=== PATIENT | female | born 1990 | race African-American/Black ===

== ENCOUNTER 2018-01-23 12:50 | Emergency (ER) | payer SELFPAY | END 2018-01-23 14:14 | disposition home or self-care (01) | LOC: ER 14:14 | DX: S30.860A Insect bite (nonvenomous) of lower back and pelvis, initial encounter (principal); L08.9 Local infection of the skin and subcutaneous tissue, unspecified; L60.0 Ingrowing nail; L03.032 Cellulitis of left toe; Z88.3 Allergy status to other anti-infective agents; W57.XXXA Bitten or stung by nonvenomous insect and other nonvenomous arthropods, initial encounter; Y93.89 Activity, other specified; Y92.89 Other specified places as the place of occurrence of the external cause; Y99.8 Other external cause status | CPT/HCPCS: 99283 ==

== ENCOUNTER 2018-10-16 02:05 | Emergency (ER) | payer SELFPAY ==
[~2018-10-16] VITALS: Ht 157.5 cm; Wt 72.6 kg
[~2018-10-16 02:05] MED LIST: CEPH-264 PO; DOXY100C2 PO; HYDR15CR20 TP; MUPI22OI2 TP; PRED-220 PO
[2018-10-16] MEDS ORDERED: IV NORMAL SALINE 1000ML BAG 1,000 ML IV SCH (03:00)
[2018-10-16] MEDS ORDERED: ACETAMINOPHEN 500 MG TABLET PO ONE (03:00)
[2018-10-16] MEDS ORDERED: IBUPROFEN 400 MG TABLET. PO ONE (03:00)
[2018-10-16 03:25] LABS: BASO % 0 % (0-3); EOS % 0 % (0-3); HEMATOCRIT 27.3 % (36.0-47.0); HEMOGLOBIN 8.7 g/dL (12.0-15.5); LYMPH # 1.5 x10^3/uL (1.0-4.8); LYMPH % 46 % (24-48); MEAN CORPUSCULAR HEMOGLOBIN 24 pg (25-35); MEAN CORPUSCULAR HGB CONC 32 g/dL (31-37); MEAN CORPUSCULAR VOLUME 74 fL (79-100); MONO # 0.2 x10^3/uL (0.0-1.1); MONO % 5 % (0-9); NEUT # 1.6 x10^3uL (1.8-7.7); NEUT % 49 % (31-73); PLATELET COUNT 35 x10^3/uL (140-400); RED BLOOD COUNT 3.67 x10^6/uL (3.50-5.40); RED CELL DISTRIBUTION WIDTH 14.9 % (11.5-14.5); WHITE BLOOD COUNT 3.3 x10^3/uL (4.0-11.0)
[2018-10-16 03:30] LABS: CALCIUM 8.4 mg/dL (8.5-10.1); CREATININE 1.8 mg/dL (0.6-1.0); GFR 41.2; POTASSIUM 4.9 mmol/L (3.5-5.1)
[2018-10-16 03:35] LABS: ALBUMIN 2.8 g/dL (3.4-5.0); ALBUMIN/GLOBULIN RATIO 0.5 (1.0-1.7); TOTAL BILIRUBIN 0.4 mg/dL (0.2-1.0); TOTAL PROTEIN 7.9 g/dL (6.4-8.2)
--- NOTE | 2018-10-16 03:44 | PHYS DOC ---
Past Medical History Past Medical History: Anemia, Other Additional Past Medical Histor: LUPUS, psvt Past Surgical History: Other Additional Past Surgical Histo: BONE MARROW AND KIDNEY BIOPSY Alcohol Use: None Drug Use: None Adult General Chief Complaint Chief Complaint: FEVER HPI HPI Patient is a 27-year-old female who presents with complaint of fever, body aches and chills that started about a week ago. She rates the body aches being mild. She denies any urinary discomfort states that she has had no cough. She denies any vomiting or diarrhea. She also denies any neck pain or headache. She denies sore throat. Patient states that there are no alleviating or aggravating factors. Review of Systems Review of Systems Constitutional: Complains of fever and chills [] HENT: Denies nasal congestion or sore throat [] Respiratory: Denies cough or shortness of breath [] Cardiovascular: No additional information not addressed in HPI [] GI: Denies abdominal pain, nausea, vomiting or diarrhea [] : Denies dysuria or hematuria [] Musculoskeletal: Complains of body aches and back pain [] Integument: Denies rash or skin lesions [] Neurologic: Denies headache, focal weakness or sensory changes [] All other systems were reviewed and found to be within normal limits, except as documented in this note. Current Medications Current Medications Current Medications Medications (Trade) Dose Ordered Sig/Shamir Start Time Stop Time Status Last Admin Dose Admin Acetaminophen (Tylenol) 1,000 mg 1X ONCE 10/16/18 03:00 10/16/18 03:01 DC 10/16/18 03:39 1,000 MG Ceftriaxone Sodium (Rocephin) 1 gm 1X ONCE 10/16/18 06:00 10/16/18 06:01 Ibuprofen (Motrin) 600 mg 1X ONCE 10/16/18 03:00 10/16/18 03:01 DC 10/16/18 03:39 600 MG Sodium Chloride 1,000 ml @ 1,000 mls/hr Q1H 10/16/18 03:00 10/16/18 03:59 DC 10/16/18 03:38 1,000 MLS/HR Allergies Allergies Allergies Coded Allergies Type Severity Reaction Last Updated Verified hydroxychloroquine Allergy Intermediate "crazy dreams" stomach pain, dizziness 10/16/18 Yes Physical Exam Physical Exam Constitutional: Well developed, well nourished, no acute distress, non-toxic appearance. [] HENT: Normocephalic, atraumatic, bilateral external ears normal, oropharynx moist, no oral exudates, nose normal. [] Eyes: PERRLA, EOMI, conjunctiva normal, no discharge. [] Neck: Normal range of motion, no tenderness, supple. [] Cardiovascular: Tachycardic rate with regular rhythm[] Lungs & Thorax: Bilateral breath sounds clear to auscultation [] Abdomen: Bowel sounds normal, soft, no tenderness. [] Skin: Warm, dry, no erythema, no rash. [] Extremities: No tenderness, no cyanosis, no clubbing, ROM intact, no edema. [] Neurologic: Alert and oriented X 3, no focal deficits noted. [] Current Patient Data Vital Signs Vital Signs Date Time Temp Pulse Resp B/P (MAP) Pulse Ox O2 Delivery O2 Flow Rate FiO2 10/16/18 02:10 99.7 134 22 122/72 (89) 98 Room Air 99.7 Lab Values Laboratory Tests Test 10/16/18 02:44 10/16/18 03:00 10/16/18 04:30 Urine Collection Type Unknown Urine Color Yellow Urine Clarity Clear Urine pH 7.5 Urine Specific [place] <=1.005 Urine Protein 100 mg/dL (NEG-TRACE) Urine Glucose (UA) Negative mg/dL (NEG) Urine Ketones (Stick) Negative mg/dL (NEG) Urine Blood Large (NEG) Urine Nitrite Negative (NEG) Urine Bilirubin Negative (NEG) Urine Urobilinogen Dipstick 0.2 mg/dL (0.2 mg/dL) Urine Leukocyte Esterase Moderate (NEG) Urine RBC 11-20 /HPF (0-2) Urine WBC Tntc /HPF (0-4) Urine Squamous Epithelial Cells Many /LPF Urine Bacteria Moderate /HPF (0-FEW) White Blood Count 3.3 x10^3/uL (4.0-11.0) L Red Blood Count 3.67 x10^6/uL (3.50-5.40) Hemoglobin 8.7 g/dL (12.0-15.5) L Hematocrit 27.3 % (36.0-47.0) L Mean Corpuscular Volume 74 fL (79-100) L Mean Corpuscular Hemoglobin 24 pg (25-35) L Mean Corpuscular Hemoglobin Concent 32 g/dL (31-37) Red Cell Distribution Width 14.9 % (11.5-14.5) H Platelet Count 35 x10^3/uL (140-400) L Neutrophils (%) (Auto) 49 % (31-73) Lymphocytes (%) (Auto) 46 % (24-48) Monocytes (%) (Auto) 5 % (0-9) Eosinophils (%) (Auto) 0 % (0-3) Basophils (%) (Auto) 0 % (0-3) Neutrophils # (Auto) 1.6 x10^3uL (1.8-7.7) L Lymphocytes # (Auto) 1.5 x10^3/uL (1.0-4.8) Monocytes # (Auto) 0.2 x10^3/uL (0.0-1.1) Eosinophils # (Auto) 0.0 x10^3/uL (0.0-0.7) Basophils # (Auto) 0.0 x10^3/uL (0.0-0.2) Platelet Estimate Pending Sodium Level 132 mmol/L (136-145) L Potassium Level 4.9 mmol/L (3.5-5.1) Chloride Level 96 mmol/L (98-107) L Carbon Dioxide Level 24 mmol/L (21-32) Anion Gap 12 (6-14) Blood Urea Nitrogen 14 mg/dL (7-20) Creatinine 1.8 mg/dL (0.6-1.0) H Estimated GFR (Cockcroft-Gault) 41.2 BUN/Creatinine Ratio 8 (6-20) Glucose Level 93 mg/dL (70-99) Lactic Acid Level 0.8 mmol/L (0.4-2.0) Calcium Level 8.4 mg/dL (8.5-10.1) L Total Bilirubin 0.4 mg/dL (0.2-1.0) Aspartate Amino Transferase (AST) 69 U/L (15-37) H Alanine Aminotransferase (ALT) 22 U/L (14-59) Alkaline Phosphatase 75 U/L (46-116) Total Protein 7.9 g/dL (6.4-8.2) Albumin 2.8 g/dL (3.4-5.0) L Albumin/Globulin Ratio 0.5 (1.0-1.7) L Influenza Type A Antigen Negative (NEGATIVE) Influenza Type B Antigen Negative (NEGATIVE) Laboratory Tests 10/16/18 03:00 Laboratory Tests 10/16/18 03:00 EKG EKG [] Interpretation Time: EKG demonstrates sinus tachycardia with rate of 114. Radiology/Procedures Radiology/Procedures [] Impressions: Chest x-ray demonstrates no acute process. Course & Med Decision Making Course & Med Decision Making Pertinent Labs and Imaging studies reviewed. (See chart for details) Patient moved to room upon arrival was evaluated by your medical staff after which an IV was established and blood work drawn. Chest x-ray was obtained as well. Patient's workup is returned with findings of pancytopenia and upon review no significant change is noted. Patient's chest x-ray was unremarkable. Renal function demonstrates elevated creatinine. UA seems consistent with UTI. Patient had been given ibuprofen and Tylenol for fever. Patient was reevaluated at 5:40 AM and does report to improvement in symptoms. I did discuss recommendation for admission to this facility for IV antibiotics and further evaluation and treatment. Patient is refusing admission at this time and is requesting discharge home with oral antibiotics. I did attempt to encourage patient to be admitted to this facility; however, patient is refusing admission at this time. She states that she lives very close to the emergency room and can return if symptoms worsen. Katherine Disclaimer Katherine Disclaimer This electronic medical record was generated, in whole or in part, using a voice recognition dictation system. Departure Departure Impression: Primary Impression: Pancytopenia Additional Impressions: [id number] kidney injury Fever Urinary tract infection Disposition: 01 HOME, SELF-CARE Condition: IMPROVED Referrals: NON,STAFF (PCP) Patient Instructions: Anemia, Nonspecific-Brief, Fever, Kidney Failure, Thrombocytopenia, Urinary Tract Infection Scripts Levofloxacin (LEVAQUIN) 500 Mg Tablet 1 TAB PO DAILY, #10 TAB Prov: LONG MCADAMS Jr. DO 10/16/18 Problem Qualifiers Additional Impressions: [id number] kidney injury Acute renal failure type: unspecified Chronic kidney disease stage: unspecified stage Qualified Codes: N17.9 - Acute kidney failure, unspecified; N18.9 - Chronic kidney disease, unspecified Fever Fever type: unspecified Qualified Codes: R50.9 - Fever, unspecified Urinary tract infection Urinary tract infection type: site unspecified Hematuria presence: with hematuria Qualified Codes: N39.0 - Urinary tract infection, site not specified ; R31.9 - Hematuria, unspecified LONG MCADAMS Jr. DO Oct 16, 2018 03:44
[2018-10-16 04:03] LABS: BILIRUBIN,URINE NEGATIVE (NEG); CLARITY,URINE CLEAR; COLOR,URINE YELLOW; NITRITE,URINE NEGATIVE (NEG); PH,URINE 7.5; PROTEIN,URINE 100 mg/dL (NEG-TRACE); UROBILINOGEN,URINE 0.2 mg/dL (0.2 mg/dL)
--- NOTE | 2018-10-16 04:08 | RAD ---
PROCEDURE: PORTABLE CHEST 1V CLINICAL INDICATION: Fever. pt has piercing over sternum that can't be removed manually COMPARISON: 04/18/2016 FINDINGS: No pneumothorax identified. Cardiac and mediastinal contours unremarkable. No pulmonary consolidation or acute airspace disease. No acute osseous abnormalities identified. IMPRESSION: No pulmonary consolidation or acute airspace disease. Electronically signed by: Tam Alvares DO (10/16/2018 4:05 AM) [facility]
[2018-10-16 04:33] LABS: BACTERIA,URINE MODERATE /HPF (0-FEW); SQUAMOUS EPITHELIAL CELL,UR MANY /LPF; WBC,URINE TNTC /HPF (0-4)
[2018-10-16 05:08] LABS: INFLUENZA A PATIENT NEGATIVE (NEGATIVE); INFLUENZA B PATIENT NEGATIVE (NEGATIVE)
[2018-10-16] MEDS ORDERED: LEVO500T59 PO (05:57)
[2018-10-16] MEDS ORDERED: cefTRIAXone IV Push 1 GM VIAL. IVP ONE (06:00)
--- NOTE | 2018-10-16 06:46 | EKG ---
[facility] [address] [place] [address] Test Date: 2018-10-16 Test Time: 03:32:22 Pat Name: PATRICIA WISEMAN Department: Room: Gender: F Litigation Counsel: : 1990 Requested By: LONG MCADAMS Order Number: [id number] Reading MD: Raul Sheets MD Measurements Intervals [place] Rate: 114 P: 0 TN: 106 QRS: 26 QRSD: 66 T: 31 QT: 290 QTc: 402 Interpretive Statements SINUS TACHYCARDIA NON-SPECIFIC ST/T CHANGES Electronically Signed On 10-22-2018 13:54:05 CDT by Raul Sheets MD
[2018-10-16 06:55] VITALS: BP 85/56
[2018-10-16 08:12] LABS: PLT ESTIMATE DECREASED (ADEQUATE)
== END 2018-10-16 06:58 | disposition home or self-care (01) ==
LOC: ER 02:05
DX: N18.9 Chronic kidney disease, unspecified (principal); N17.9 Acute kidney failure, unspecified; N39.0 Urinary tract infection, site not specified; D61.818 Other pancytopenia; R50.9 Fever, unspecified; R00.0 Tachycardia, unspecified; Z88.3 Allergy status to other anti-infective agents
CPT/HCPCS: 36415; 71045; 80053; 81001; 83605; 85025; 87040; 87070; 87086; 87804; 87880; 93005; 96374; 99284; J0696; J7030; 87186

== ENCOUNTER 2018-10-17 04:31 | Inpatient (IN) | payer SELFPAY ==
[~2018-10-17] VITALS: Ht 158.8 cm; Wt 66.7 kg
[~2018-10-17 04:31] MED LIST changes: +LEVO500T59 PO
[2018-10-17 05:00] LABS: BASO % 0 % (0-3); EOS % 0 % (0-3); HEMATOCRIT 26.7 % (36.0-47.0); HEMOGLOBIN 8.4 g/dL (12.0-15.5); LYMPH # 1.6 x10^3/uL (1.0-4.8); LYMPH % 48 % (24-48); MEAN CORPUSCULAR HEMOGLOBIN 24 pg (25-35); MEAN CORPUSCULAR HGB CONC 31 g/dL (31-37); MEAN CORPUSCULAR VOLUME 75 fL (79-100); MONO # 0.1 x10^3/uL (0.0-1.1); MONO % 3 % (0-9); NEUT # 1.6 x10^3uL (1.8-7.7); NEUT % 49 % (31-73); PLATELET COUNT 27 x10^3/uL (140-400); RED BLOOD COUNT 3.56 x10^6/uL (3.50-5.40); RED CELL DISTRIBUTION WIDTH 15.4 % (11.5-14.5); WHITE BLOOD COUNT 3.3 x10^3/uL (4.0-11.0)
--- NOTE | 2018-10-17 05:07 | PHYS DOC ---
Past Medical History Past Medical History: Anemia, Other Additional Past Medical Histor: LUPUS, psvt Past Surgical History: Other Additional Past Surgical Histo: BONE MARROW AND KIDNEY BIOPSY Alcohol Use: None Drug Use: None Adult General Chief Complaint Chief Complaint: BLOODY STOOL HPI HPI Patient is a 27 year old female who presents with rectal bleeding that started several hours ago. Patient had been drinking beat juice and initially attributed the right red blood from her rectum to the beach use however it has continued for 4 bowel movements. Patient also notes that she developed a fever of 104 yesterday. She was seen in the emergency department yesterday and ultimately diagnosed with a urinary tract infection and started on IV antibiotics. She has lupus as well as a known pancytopenia. She has taken no pain nor antipyretic medicines. She denies taking any medicines.[] Review of Systems Review of Systems Constitutional: Denies chills, see history of present illness [] Eyes: Denies change in visual acuity, redness, or eye pain [] HENT: Denies nasal congestion or sore throat [] Respiratory: Denies cough or shortness of breath [] Cardiovascular: No chest pain or palpitations[] GI: See history of present illness[] : Denies dysuria or hematuria [] Musculoskeletal: Denies back pain or joint pain [] Integument: Denies rash or skin lesions [] Neurologic: Denies headache, focal weakness or sensory changes [] Endocrine: Denies polyuria or polydipsia [] All other systems were reviewed and found to be within normal limits, except as documented in this note. Current Medications Current Medications Current Medications Medications (Trade) Dose Ordered Sig/Shamir Start Time Stop Time Status Last Admin Dose Admin Ceftriaxone Sodium (Rocephin) 1 gm 1X ONCE 10/17/18 05:30 10/17/18 05:31 DC Pantoprazole Sodium (PROTONIX VIAL for IV PUSH) 40 mg 1X ONCE 10/17/18 05:30 10/17/18 05:31 DC Sodium Chloride 500 ml @ 500 mls/hr 1X ONCE 10/17/18 05:30 10/17/18 06:29 Allergies Allergies Allergies Coded Allergies Type Severity Reaction Last Updated Verified hydroxychloroquine Allergy Intermediate "crazy dreams" stomach pain, dizziness 10/16/18 Yes Physical Exam Physical Exam Constitutional: Well developed, well nourished, ill appearing. [] HENT: Normocephalic, atraumatic, bilateral external ears normal, oropharynx moist, no oral exudates, nose normal. [] Eyes: PERRLA, EOMI, conjunctiva normal, no discharge. [] Neck: Normal range of motion, no tenderness, supple, no stridor. [] Cardiovascular:Heart rate is tachycardic with a regular rhythm, no murmur [] Lungs & Thorax: Bilateral breath sounds clear to auscultation [] Abdomen: Bowel sounds normal, soft, no tenderness, no masses, no pulsatile masses. Rectal exam performed with tread booker: No external hemorrhoids, no bleeding noted externally. Stool was red in color, no internal masses palpated[] Skin: Warm, dry, no erythema, no rash. [] Back: No tenderness, no CVA tenderness. [] Extremities: No tenderness, no cyanosis, no clubbing, ROM intact, no edema. [] Neurologic: Alert and oriented X 3, normal motor function, normal sensory function, no focal deficits noted. [] Psychologic: Affect normal, judgement normal, mood normal. [] Current Patient Data Vital Signs Vital Signs Date Time Temp Pulse Resp B/P (MAP) Pulse Ox O2 Delivery O2 Flow Rate FiO2 10/17/18 04:40 99.6 118 16 114/66 (82) 100 Room Air 99.6 Lab Values Laboratory Tests Test 10/17/18 04:45 10/17/18 04:50 10/17/18 05:23 10/17/18 05:25 Lactic Acid Level 0.8 mmol/L (0.4-2.0) White Blood Count 3.3 x10^3/uL (4.0-11.0) L Red Blood Count 3.56 x10^6/uL (3.50-5.40) Hemoglobin 8.4 g/dL (12.0-15.5) L Hematocrit 26.7 % (36.0-47.0) L Mean Corpuscular Volume 75 fL (79-100) L Mean Corpuscular Hemoglobin 24 pg (25-35) L Mean Corpuscular Hemoglobin Concent 31 g/dL (31-37) Red Cell Distribution Width 15.4 % (11.5-14.5) H Platelet Count 27 x10^3/uL (140-400) L Neutrophils (%) (Auto) 49 % (31-73) Lymphocytes (%) (Auto) 48 % (24-48) Monocytes (%) (Auto) 3 % (0-9) Eosinophils (%) (Auto) 0 % (0-3) Basophils (%) (Auto) 0 % (0-3) Neutrophils # (Auto) 1.6 x10^3uL (1.8-7.7) L Lymphocytes # (Auto) 1.6 x10^3/uL (1.0-4.8) Monocytes # (Auto) 0.1 x10^3/uL (0.0-1.1) Eosinophils # (Auto) 0.0 x10^3/uL (0.0-0.7) Basophils # (Auto) 0.0 x10^3/uL (0.0-0.2) Segmented Neutrophils % 40 % (35-66) Band Neutrophils % 17 % (0-9) H Lymphocytes % 41 % (24-48) Monocytes % 2 % (0-10) Platelet Estimate Decreased (ADEQUATE) Hypochromasia Slight Anisocytosis Slight Microcytosis Slight Tear Drop Cells Occ Ovalocytes Few Prothrombin Time 14.0 SEC (11.7-14.0) Prothrombin Time INR 1.1 (0.8-1.1) Stool Occult Blood Negative (NEG) Sodium Level 132 mmol/L (136-145) L Potassium Level 4.2 mmol/L (3.5-5.1) Chloride Level 96 mmol/L (98-107) L Carbon Dioxide Level 21 mmol/L (21-32) Anion Gap 15 (6-14) H Blood Urea Nitrogen 12 mg/dL (7-20) Creatinine 1.9 mg/dL (0.6-1.0) H Estimated GFR (Cockcroft-Gault) 38.7 BUN/Creatinine Ratio 6 (6-20) Glucose Level 109 mg/dL (70-99) H Calcium Level 8.3 mg/dL (8.5-10.1) L Total Bilirubin 0.4 mg/dL (0.2-1.0) Aspartate Amino Transferase (AST) 92 U/L (15-37) H Alanine Aminotransferase (ALT) 31 U/L (14-59) Alkaline Phosphatase 77 U/L (46-116) Total Protein 7.9 g/dL (6.4-8.2) Albumin 2.9 g/dL (3.4-5.0) L Albumin/Globulin Ratio 0.6 (1.0-1.7) L Urine Collection Type Unknown Urine Color Yellow Urine Clarity Clear Urine pH 6.0 Urine Specific [place] <=1.005 Urine Protein 100 mg/dL (NEG-TRACE) Urine Glucose (UA) Negative mg/dL (NEG) Urine Ketones (Stick) Trace mg/dL (NEG) Urine Blood Large (NEG) Urine Nitrite Negative (NEG) Urine Bilirubin Negative (NEG) Urine Urobilinogen Dipstick 0.2 mg/dL (0.2 mg/dL) Urine Leukocyte Esterase Small (NEG) Urine RBC 3-5 /HPF (0-2) Urine WBC 11-20 /HPF (0-4) Urine Squamous Epithelial Cells Few /LPF Urine Bacteria 0 /HPF (0-FEW) POC Urine HCG, Qualitative Hcg negative (Negative) Laboratory Tests 10/17/18 04:50 Laboratory Tests 10/17/18 04:50 EKG EKG EKG shows sinus tachycardia at 115 bpm, normal axis, QTC 431 ms, no ST elevation. Interpreted by me at 0 522[] Radiology/Procedures Radiology/Procedures [] Course & Med Decision Making Course & Med Decision Making Pertinent Labs and Imaging studies reviewed. (See chart for details) ED course and medical decision making: Patient arrived, was placed in bed, and tolerated exam well. IV access was established and she was given IV fluids. Review was made of her chart from yesterday, noting that she had a negative chest x-ray and she was given Rocephin IV for a urinary tract infection and started on outpatient levofloxacin. No was made of her anemia as well as tachycardia which appears to be approximately the same today. It is also noted that she has no growth in her culture obtained yesterday. Medical decision making: Patient has pancytopenia along with her lupus. Her stool was Hemoccult negative despite being bright red, this may be from the beets that she had been ingesting. Her urine looks better in that there are fewer white cells than yesterday's urinalysis. However given that she is feeling worse believe that this is a failure of outpatient treatment and so consultation was made with the hospitalist service for admission and further evaluation.[] Dragon Disclaimer Dragon Disclaimer This electronic medical record was generated, in whole or in part, using a voice recognition dictation system. Departure Departure Impression: Primary Impression: Failure of outpatient treatment Additional Impressions: UTI (urinary tract infection) SLE (systemic lupus erythematosus related syndrome) Pancytopenia Weakness Disposition: 09 ADMITTED INPATIENT Admitting Physician: Freeman Mariee Condition: IMPROVED Referrals: NO PCP (PCP) Problem Qualifiers Additional Impressions: UTI (urinary tract infection) Urinary tract infection type: site unspecified Hematuria presence: with hematuria Qualified Codes: N39.0 - Urinary tract infection, site not specified ; R31.9 - Hematuria, unspecified BEENA GONZALEZ DO Oct 17, 2018 05:07
[2018-10-17 05:11] LABS: CALCIUM 8.3 mg/dL (8.5-10.1); CREATININE 1.9 mg/dL (0.6-1.0); GFR 38.7; POTASSIUM 4.2 mmol/L (3.5-5.1)
[2018-10-17 05:15] LABS: FECAL OB PT NEGATIVE (NEG)
[2018-10-17 05:17] LABS: ALBUMIN 2.9 g/dL (3.4-5.0); ALBUMIN/GLOBULIN RATIO 0.6 (1.0-1.7); TOTAL BILIRUBIN 0.4 mg/dL (0.2-1.0); TOTAL PROTEIN 7.9 g/dL (6.4-8.2)
[2018-10-17] MEDS ORDERED: cefTRIAXone IV Push 1 GM VIAL. IVP ONE (05:30)
[2018-10-17] MEDS ORDERED: IV NORMAL SALINE 500ML BAG 500 ML IV ONE (05:30)
[2018-10-17] MEDS ORDERED: PANTOPRAZOLE IV PUSH 40 MG VIAL. IVP ONE (05:30)
[2018-10-17 05:32] LABS: BILIRUBIN,URINE NEGATIVE (NEG); CLARITY,URINE CLEAR; COLOR,URINE YELLOW; NITRITE,URINE NEGATIVE (NEG); PROTEIN,URINE 100 mg/dL (NEG-TRACE); UROBILINOGEN,URINE 0.2 mg/dL (0.2 mg/dL)
[2018-10-17 05:42] LABS: BACTERIA,URINE 0 /HPF (0-FEW); SQUAMOUS EPITHELIAL CELL,UR FEW /LPF
[2018-10-17 05:48] LABS: % BANDS 17 % (0-9); % LYMPHS 41 % (24-48); % MONOS 2 % (0-10); % SEGS 40 % (35-66); ANISOCYTOSIS SLIGHT; HYPOCHROMIA SLIGHT; MICROCYTOSIS SLIGHT; OVALOCYTES FEW; PLT ESTIMATE DECREASED (ADEQUATE); TEAR DROP CELLS OCC
[2018-10-17] MEDS ORDERED: ACETAMINOPHEN 325 MG TABLET. PO PRN (06:15)
[2018-10-17] MEDS ORDERED: ONDANSETRON PF 4 MG/2 ML VIAL. IV PRN ×2 (06:15→09:15)
[2018-10-17] MEDS ORDERED: IV NORMAL SALINE 1000ML BAG 1,000 ML IV SCH (06:30)
[2018-10-17 07:57] VITALS: BP 94/63
[2018-10-17] MEDS ORDERED: HYDROCORTISONE 1% TOPICAL CREAM 30GM TUBE. TP PRN (09:30)
[2018-10-17 11:15] VITALS: BP 101/64
--- NOTE | 2018-10-17 11:28 | PDOC1 ---
History and Physical Date of Admission Date of Admission DATE: 10/17/18 TIME: 11:21 Identification/Chief Complaint Chief Complaint Blood in stool? But could be just beet juice Source Source: Caregiver, Chart review, Patient History of Present Illness History of Present Illness 27 Afro-[place]ian female with SLE follows with [facility], known pancytopenia, comes in because of bloody stools but could've been just be juice she was taking. Hemoccult negative. Hemoglobin 8.4, WBC 3.3, low platelets 27 with no bleeding- she claims she is known pancytopenia. Creatinine 1.9 with a creatinine that she gives me a value 3.0. SLE has affected her kidneys. UTI initially but I don't think this UTI as I have reviewed on UA. Admitted with GI and renal on board No more bloody urine or stools. We are just waiting for GI to see but actually I think she can go home later. I do believe this is all just be juice. Her pancytopenia is chronic stable, her CK D is actually stable and she follows up with [facility] and has an appointment next month We'll do regular diet and possibly home later Flags sepsos, getting IV fluids and antibiotics. I am not convinced it is UTI. Looking at urinalysis there is rbc's many, could be from the low platelets Past Medical History CENTRAL NERVOUS SYSTEM: Seizure Heme/Onc: Anemia NOS Rheumatologic: Other (SLE) Past Surgical History Past Surgical History: No pertinent history Family History Family History: Hypertension Social History Smoke: No ALCOHOL: none Drugs: None Current Problem List Problem List Problems Medical Problems: (1) Pancytopenia Status: Acute Current Medications Current Medications Current Medications Sodium Chloride 500 ml @ 500 mls/hr 1X ONCE IV Last administered on at 06:11; Start 10/17/18 at 05:30; Stop 10/17/18 at 06:29; Status DC Pantoprazole Sodium (PROTONIX VIAL for IV PUSH) 40 mg 1X ONCE IVP Last administered on 10/17/18at 06:11; Start 10/17/18 at 05:30; Stop 10/17/18 at 05:31 ; Status DC Ceftriaxone Sodium (Rocephin) 1 gm 1X ONCE IVP Last administered on 10/17/18at 06:11; Start 10/17/18 at 05:30; Stop 10/17/18 at 05:31; Status DC Ondansetron HCl (Zofran) 4 mg PRN Q8HRS PRN IV NAUSEA/VOMITING 1ST CHOICE; Start 10/17/18 at 06:15; Stop 10/17/18 at 09:01; Status DC Sodium Chloride 1,000 ml @ 150 mls/hr Q6H40M IV Last administered on at 06:30; Start 10/17/18 at 06:30; Stop 10/18/18 at 06:29 Acetaminophen (Tylenol) 650 mg PRN Q4HRS PRN PO FEVER; Start 10/17/18 at 06:15 ; Stop 10/18/18 at 06:14 Ondansetron HCl (Zofran) 4 mg PRN Q6HRS PRN IV NAUSEA/VOMITING 1ST CHOICE; Start 10/17/18 at 09:15 Mupirocin (Bactroban) 1 nano TID TP ; Start 10/17/18 at 14:00 Hydrocortisone (Cortaid) 1 nano PRN BID PRN TP ITCHING; Start 10/17/18 at 09:30 Active Scripts Active Levaquin (Levofloxacin) 500 Mg Tablet 1 Tab PO DAILY Hydrocortisone Valerate 15 Gm Cream..g. 1 Nano TP BID PRN 5 Days Apply thin layer to itchy area twice daily for itching Mupirocin Ointment (Mupirocin) 22 Gm Oint...g. 1 Nano TP TID 7 Days to Left great toe Keflex (Cephalexin) 500 Mg Capsule 1,000 Mg PO BID 10 Days Doxycycline Hyclate 100 Mg Capsule 1 Cap PO BID Prednisone (Prednisone) 10 Mg Tablet 10 Mg PO UD Take 3 tablets by mouth twice a day for 3 days, then take 2 tablets by mouth twice a day for 3 days, then take 1 tablet by mouth twice a day for 3 days, then take 1 tablet by mouth daily x 3 days, then stop. Allergies Allergies: Coded Allergies: hydroxychloroquine (Verified Allergy, Intermediate, "crazy dreams" stomach pain, dizziness, 10/16/18) ROS Review of System Only red stools from beet juice otherwise rest of 14 point systems reviewed negative Physical Exam General: Alert, Oriented X3, Cooperative, No acute distress HEENT: Atraumatic, PERRLA, EOMI Lungs: Clear to auscultation, Normal air movement Heart: S1S2, RRR, no thrills, no rubs, no gallops Cardiovascular: S1, S2 Breasts: Normal, Rt breast nml w/o mass, Lt breast nml w/o mass, Nipples normal Abdomen: Normal bowel sounds, Soft, No tenderness, No hepatosplenomegaly, No masses Rectal Exam: not examined PELVIC: Nml ext genitalia Extremities: No clubbing, No cyanosis, No edema, Normal pulses, No tenderness/ swelling Skin: No rashes, No breakdown, No significant lesion Neuro: Normal gait, Normal speech, Strength at 5/5 X4 ext, Normal tone, Sensation intact, Cranial nerves 3-12 NL, Reflexes 2+ Psych/Mental Status: Mental status NL, Mood NL Vitals Vitals Vital Signs Date Time Temp Pulse Resp B/P (MAP) Pulse Ox O2 Delivery O2 Flow Rate FiO2 10/17/18 07:57 99.0 97 18 94/63 (73) 99 Room Air 99.0 Labs Labs Laboratory Tests Test 10/17/18 04:45 10/17/18 04:50 10/17/18 05:23 10/17/18 05:25 Lactic Acid Level 0.8 mmol/L (0.4-2.0) White Blood Count 3.3 x10^3/uL (4.0-11.0) Red Blood Count 3.56 x10^6/uL (3.50-5.40) Hemoglobin 8.4 g/dL (12.0-15.5) Hematocrit 26.7 % (36.0-47.0) Mean Corpuscular Volume 75 fL (79-100) Mean Corpuscular Hemoglobin 24 pg (25-35) Mean Corpuscular Hemoglobin Concent 31 g/dL (31-37) Red Cell Distribution Width 15.4 % (11.5-14.5) Platelet Count 27 x10^3/uL (140-400) Neutrophils (%) (Auto) 49 % (31-73) Lymphocytes (%) (Auto) 48 % (24-48) Monocytes (%) (Auto) 3 % (0-9) Eosinophils (%) (Auto) 0 % (0-3) Basophils (%) (Auto) 0 % (0-3) Neutrophils # (Auto) 1.6 x10^3uL (1.8-7.7) Lymphocytes # (Auto) 1.6 x10^3/uL (1.0-4.8) Monocytes # (Auto) 0.1 x10^3/uL (0.0-1.1) Eosinophils # (Auto) 0.0 x10^3/uL (0.0-0.7) Basophils # (Auto) 0.0 x10^3/uL (0.0-0.2) Segmented Neutrophils % 40 % (35-66) Band Neutrophils % 17 % (0-9) Lymphocytes % 41 % (24-48) Monocytes % 2 % (0-10) Platelet Estimate Decreased (ADEQUATE) Hypochromasia Slight Anisocytosis Slight Microcytosis Slight Tear Drop Cells Occ Ovalocytes Few Prothrombin Time 14.0 SEC (11.7-14.0) Prothromb Time International Ratio 1.1 (0.8-1.1) Stool Occult Blood Negative (NEG) Sodium Level 132 mmol/L (136-145) Potassium Level 4.2 mmol/L (3.5-5.1) Chloride Level 96 mmol/L (98-107) Carbon Dioxide Level 21 mmol/L (21-32) Anion Gap 15 (6-14) Blood Urea Nitrogen 12 mg/dL (7-20) Creatinine 1.9 mg/dL (0.6-1.0) Estimated GFR (Cockcroft-Gault) 38.7 BUN/Creatinine Ratio 6 (6-20) Glucose Level 109 mg/dL (70-99) Calcium Level 8.3 mg/dL (8.5-10.1) Total Bilirubin 0.4 mg/dL (0.2-1.0) Aspartate Amino Transf (AST/SGOT) 92 U/L (15-37) Alanine Aminotransferase (ALT/SGPT) 31 U/L (14-59) Alkaline Phosphatase 77 U/L (46-116) Total Protein 7.9 g/dL (6.4-8.2) Albumin 2.9 g/dL (3.4-5.0) Albumin/Globulin Ratio 0.6 (1.0-1.7) Urine Collection Type Unknown Urine Color Yellow Urine Clarity Clear Urine pH 6.0 Urine Specific [place] <=1.005 Urine Protein 100 mg/dL (NEG-TRACE) Urine Glucose (UA) Negative mg/dL (NEG) Urine Ketones (Stick) Trace mg/dL (NEG) Urine Blood Large (NEG) Urine Nitrite Negative (NEG) Urine Bilirubin Negative (NEG) Urine Urobilinogen Dipstick 0.2 mg/dL (0.2 mg/dL) Urine Leukocyte Esterase Small (NEG) Urine RBC 3-5 /HPF (0-2) Urine WBC 11-20 /HPF (0-4) Urine Squamous Epithelial Cells Few /LPF Urine Bacteria 0 /HPF (0-FEW) Bedside Urine HCG, Qualitative Hcg negative (Negative) Laboratory Tests Test 10/17/18 04:45 10/17/18 04:50 10/17/18 05:23 10/17/18 05:25 Lactic Acid Level 0.8 mmol/L (0.4-2.0) White Blood Count 3.3 x10^3/uL (4.0-11.0) Red Blood Count 3.56 x10^6/uL (3.50-5.40) Hemoglobin 8.4 g/dL (12.0-15.5) Hematocrit 26.7 % (36.0-47.0) Mean Corpuscular Volume 75 fL (79-100) Mean Corpuscular Hemoglobin 24 pg (25-35) Mean Corpuscular Hemoglobin Concent 31 g/dL (31-37) Red Cell Distribution Width 15.4 % (11.5-14.5) Platelet Count 27 x10^3/uL (140-400) Neutrophils (%) (Auto) 49 % (31-73) Lymphocytes (%) (Auto) 48 % (24-48) Monocytes (%) (Auto) 3 % (0-9) Eosinophils (%) (Auto) 0 % (0-3) Basophils (%) (Auto) 0 % (0-3) Neutrophils # (Auto) 1.6 x10^3uL (1.8-7.7) Lymphocytes # (Auto) 1.6 x10^3/uL (1.0-4.8) Monocytes # (Auto) 0.1 x10^3/uL (0.0-1.1) Eosinophils # (Auto) 0.0 x10^3/uL (0.0-0.7) Basophils # (Auto) 0.0 x10^3/uL (0.0-0.2) Segmented Neutrophils % 40 % (35-66) Band Neutrophils % 17 % (0-9) Lymphocytes % 41 % (24-48) Monocytes % 2 % (0-10) Platelet Estimate Decreased (ADEQUATE) Hypochromasia Slight Anisocytosis Slight Microcytosis Slight Tear Drop Cells Occ Ovalocytes Few Prothrombin Time 14.0 SEC (11.7-14.0) Prothromb Time International Ratio 1.1 (0.8-1.1) Stool Occult Blood Negative (NEG) Sodium Level 132 mmol/L (136-145) Potassium Level 4.2 mmol/L (3.5-5.1) Chloride Level 96 mmol/L (98-107) Carbon Dioxide Level 21 mmol/L (21-32) Anion Gap 15 (6-14) Blood Urea Nitrogen 12 mg/dL (7-20) Creatinine 1.9 mg/dL (0.6-1.0) Estimated GFR (Cockcroft-Gault) 38.7 BUN/Creatinine Ratio 6 (6-20) Glucose Level 109 mg/dL (70-99) Calcium Level 8.3 mg/dL (8.5-10.1) Total Bilirubin 0.4 mg/dL (0.2-1.0) Aspartate Amino Transf (AST/SGOT) 92 U/L (15-37) Alanine Aminotransferase (ALT/SGPT) 31 U/L (14-59) Alkaline Phosphatase 77 U/L (46-116) Total Protein 7.9 g/dL (6.4-8.2) Albumin 2.9 g/dL (3.4-5.0) Albumin/Globulin Ratio 0.6 (1.0-1.7) Urine Collection Type Unknown Urine Color Yellow Urine Clarity Clear Urine pH 6.0 Urine Specific [place] <=1.005 Urine Protein 100 mg/dL (NEG-TRACE) Urine Glucose (UA) Negative mg/dL (NEG) Urine Ketones (Stick) Trace mg/dL (NEG) Urine Blood Large (NEG) Urine Nitrite Negative (NEG) Urine Bilirubin Negative (NEG) Urine Urobilinogen Dipstick 0.2 mg/dL (0.2 mg/dL) Urine Leukocyte Esterase Small (NEG) Urine RBC 3-5 /HPF (0-2) Urine WBC 11-20 /HPF (0-4) Urine Squamous Epithelial Cells Few /LPF Urine Bacteria 0 /HPF (0-FEW) Bedside Urine HCG, Qualitative Hcg negative (Negative) VTE Prophylaxis Ordered VTE Prophylaxis Devices: Contraindicated VTE Pharmacological Prophylaxi: Contraindicated Assessment/Plan Assessment/Plan Bloody appearance of stool sec to beet juice [place] SLE with known pancytopenia - follows with [facility] FLags sepsis BUT THIS IS NOT SEPSIS BUT HE CO MORBIDS FOBT NEG MIcrsocopic hematuria in [place] background of low platelets PLAN: REason for admit is sec to beet juice, All albs are chronic and stable HAs ff up with [facility] next month HOme today MONA ZARAGOZA MD Oct 17, 2018 11:28
--- NOTE | 2018-10-17 11:29 | PDOC3 ---
Discharge Summary Visit Information Date of Admission: Oct 16, 2018 Date of Discharge: Oct 17, 2018 Admitting Diagnosis Comment: Bloody appearance of stool sec to beet juice [place] SLE with known pancytopenia - follows with [facility] FLags sepsis BUT THIS IS NOT SEPSIS BUT HE CO MORBIDS FOBT NEG MIcrsocopic hematuria in [place] background of low platelets PLAN: REason for admit is sec to beet juice, All albs are chronic and stable HAs ff up with [facility] next month HOme today Final Diagnosis Problems Medical Problems: (1) Pancytopenia Status: Acute Brief Hospital Course Allergies Allergies Coded Allergies Type Severity Reaction Last Updated Verified hydroxychloroquine Allergy Intermediate "crazy dreams" stomach pain, dizziness 10/16/18 Yes Vital Signs Vital Signs Date Time Temp Pulse Resp B/P (MAP) Pulse Ox O2 Delivery O2 Flow Rate FiO2 10/17/18 07:57 99.0 97 18 94/63 (73) 99 Room Air 99.0 Lab Results Laboratory Tests Test 10/17/18 04:45 10/17/18 04:50 10/17/18 05:23 10/17/18 05:25 Lactic Acid Level 0.8 mmol/L (0.4-2.0) White Blood Count 3.3 x10^3/uL (4.0-11.0) Red Blood Count 3.56 x10^6/uL (3.50-5.40) Hemoglobin 8.4 g/dL (12.0-15.5) Hematocrit 26.7 % (36.0-47.0) Mean Corpuscular Volume 75 fL (79-100) Mean Corpuscular Hemoglobin 24 pg (25-35) Mean Corpuscular Hemoglobin Concent 31 g/dL (31-37) Red Cell Distribution Width 15.4 % (11.5-14.5) Platelet Count 27 x10^3/uL (140-400) Neutrophils (%) (Auto) 49 % (31-73) Lymphocytes (%) (Auto) 48 % (24-48) Monocytes (%) (Auto) 3 % (0-9) Eosinophils (%) (Auto) 0 % (0-3) Basophils (%) (Auto) 0 % (0-3) Neutrophils # (Auto) 1.6 x10^3uL (1.8-7.7) Lymphocytes # (Auto) 1.6 x10^3/uL (1.0-4.8) Monocytes # (Auto) 0.1 x10^3/uL (0.0-1.1) Eosinophils # (Auto) 0.0 x10^3/uL (0.0-0.7) Basophils # (Auto) 0.0 x10^3/uL (0.0-0.2) Segmented Neutrophils % 40 % (35-66) Band Neutrophils % 17 % (0-9) Lymphocytes % 41 % (24-48) Monocytes % 2 % (0-10) Platelet Estimate Decreased (ADEQUATE) Hypochromasia Slight Anisocytosis Slight Microcytosis Slight Tear Drop Cells Occ Ovalocytes Few Prothrombin Time 14.0 SEC (11.7-14.0) Prothromb Time International Ratio 1.1 (0.8-1.1) Stool Occult Blood Negative (NEG) Sodium Level 132 mmol/L (136-145) Potassium Level 4.2 mmol/L (3.5-5.1) Chloride Level 96 mmol/L (98-107) Carbon Dioxide Level 21 mmol/L (21-32) Anion Gap 15 (6-14) Blood Urea Nitrogen 12 mg/dL (7-20) Creatinine 1.9 mg/dL (0.6-1.0) Estimated GFR (Cockcroft-Gault) 38.7 BUN/Creatinine Ratio 6 (6-20) Glucose Level 109 mg/dL (70-99) Calcium Level 8.3 mg/dL (8.5-10.1) Total Bilirubin 0.4 mg/dL (0.2-1.0) Aspartate Amino Transf (AST/SGOT) 92 U/L (15-37) Alanine Aminotransferase (ALT/SGPT) 31 U/L (14-59) Alkaline Phosphatase 77 U/L (46-116) Total Protein 7.9 g/dL (6.4-8.2) Albumin 2.9 g/dL (3.4-5.0) Albumin/Globulin Ratio 0.6 (1.0-1.7) Urine Collection Type Unknown Urine Color Yellow Urine Clarity Clear Urine pH 6.0 Urine Specific [place] <=1.005 Urine Protein 100 mg/dL (NEG-TRACE) Urine Glucose (UA) Negative mg/dL (NEG) Urine Ketones (Stick) Trace mg/dL (NEG) Urine Blood Large (NEG) Urine Nitrite Negative (NEG) Urine Bilirubin Negative (NEG) Urine Urobilinogen Dipstick 0.2 mg/dL (0.2 mg/dL) Urine Leukocyte Esterase Small (NEG) Urine RBC 3-5 /HPF (0-2) Urine WBC 11-20 /HPF (0-4) Urine Squamous Epithelial Cells Few /LPF Urine Bacteria 0 /HPF (0-FEW) Bedside Urine HCG, Qualitative Hcg negative (Negative) Laboratory Tests Test 10/17/18 04:45 10/17/18 04:50 10/17/18 05:23 10/17/18 05:25 Lactic Acid Level 0.8 mmol/L (0.4-2.0) White Blood Count 3.3 x10^3/uL (4.0-11.0) Red Blood Count 3.56 x10^6/uL (3.50-5.40) Hemoglobin 8.4 g/dL (12.0-15.5) Hematocrit 26.7 % (36.0-47.0) Mean Corpuscular Volume 75 fL (79-100) Mean Corpuscular Hemoglobin 24 pg (25-35) Mean Corpuscular Hemoglobin Concent 31 g/dL (31-37) Red Cell Distribution Width 15.4 % (11.5-14.5) Platelet Count 27 x10^3/uL (140-400) Neutrophils (%) (Auto) 49 % (31-73) Lymphocytes (%) (Auto) 48 % (24-48) Monocytes (%) (Auto) 3 % (0-9) Eosinophils (%) (Auto) 0 % (0-3) Basophils (%) (Auto) 0 % (0-3) Neutrophils # (Auto) 1.6 x10^3uL (1.8-7.7) Lymphocytes # (Auto) 1.6 x10^3/uL (1.0-4.8) Monocytes # (Auto) 0.1 x10^3/uL (0.0-1.1) Eosinophils # (Auto) 0.0 x10^3/uL (0.0-0.7) Basophils # (Auto) 0.0 x10^3/uL (0.0-0.2) Segmented Neutrophils % 40 % (35-66) Band Neutrophils % 17 % (0-9) Lymphocytes % 41 % (24-48) Monocytes % 2 % (0-10) Platelet Estimate Decreased (ADEQUATE) Hypochromasia Slight Anisocytosis Slight Microcytosis Slight Tear Drop Cells Occ Ovalocytes Few Prothrombin Time 14.0 SEC (11.7-14.0) Prothromb Time International Ratio 1.1 (0.8-1.1) Stool Occult Blood Negative (NEG) Sodium Level 132 mmol/L (136-145) Potassium Level 4.2 mmol/L (3.5-5.1) Chloride Level 96 mmol/L (98-107) Carbon Dioxide Level 21 mmol/L (21-32) Anion Gap 15 (6-14) Blood Urea Nitrogen 12 mg/dL (7-20) Creatinine 1.9 mg/dL (0.6-1.0) Estimated GFR (Cockcroft-Gault) 38.7 BUN/Creatinine Ratio 6 (6-20) Glucose Level 109 mg/dL (70-99) Calcium Level 8.3 mg/dL (8.5-10.1) Total Bilirubin 0.4 mg/dL (0.2-1.0) Aspartate Amino Transf (AST/SGOT) 92 U/L (15-37) Alanine Aminotransferase (ALT/SGPT) 31 U/L (14-59) Alkaline Phosphatase 77 U/L (46-116) Total Protein 7.9 g/dL (6.4-8.2) Albumin 2.9 g/dL (3.4-5.0) Albumin/Globulin Ratio 0.6 (1.0-1.7) Urine Collection Type Unknown Urine Color Yellow Urine Clarity Clear Urine pH 6.0 Urine Specific [place] <=1.005 Urine Protein 100 mg/dL (NEG-TRACE) Urine Glucose (UA) Negative mg/dL (NEG) Urine Ketones (Stick) Trace mg/dL (NEG) Urine Blood Large (NEG) Urine Nitrite Negative (NEG) Urine Bilirubin Negative (NEG) Urine Urobilinogen Dipstick 0.2 mg/dL (0.2 mg/dL) Urine Leukocyte Esterase Small (NEG) Urine RBC 3-5 /HPF (0-2) Urine WBC 11-20 /HPF (0-4) Urine Squamous Epithelial Cells Few /LPF Urine Bacteria 0 /HPF (0-FEW) Bedside Urine HCG, Qualitative Hcg negative (Negative) Brief Hospital Course Ms. Triana is a 27 old [sex] who presented with [ ] 27 Afro-[place]ish female with SLE follows with [facility], known pancytopenia, comes in because of bloody stools but could've been just be juice she was taking. Hemoccult negative. Hemoglobin 8.4, WBC 3.3, low platelets 27 with no bleeding- she claims she is known pancytopenia. Creatinine 1.9 with a creatinine that she gives me a value 3.0. SLE has affected her kidneys. UTI initially but I don't think this UTI as I have reviewed on UA. Admitted with GI and renal on board No more bloody urine or stools. We are just waiting for GI to see but actually I think she can go home later. I do believe this is all just be juice. Her pancytopenia is chronic stable, her CK D is actually stable and she follows up with [facility] and has an appointment next month We'll do regular diet and possibly home later Flags sepsos, getting IV fluids and antibiotics. I am not convinced it is UTI. Looking at urinalysis there is rbc's many, could be from the low platelets Discharge Information Condition at Discharge: Improved, Stable Follow Up: Weeks (next mo [facility]) Disposition/Orders: D/C to Home Scheduled Cephalexin (Keflex) 500 Mg Capsule, 1,000 MG PO BID for 10 Days, #40 Prescribed by: ASTER RASMUSSEN APRN on 01/23/181407 Last Action: HELD on 10/17/18900 by MONA ZARAGOZA Doxycycline Hyclate (Doxycycline Hyclate) 100 Mg Capsule, 1 CAP PO BID, #14 Prescribed by: KATI BECKFORD on 04/21/16 1130 Last Action: HELD on 10/17/18900 by MONA ZARAGOZA Levofloxacin (Levaquin) 500 Mg Tablet, 1 TAB PO DAILY, #10 Prescribed by: LONG MCADAMS D.O. on 10/16/18 4999 Last Action: HELD on 10/17/18900 by MONA ZARAGOZA Mupirocin (Mupirocin Ointment) 22 Gm Oint...g., 1 RADHA TP TID for WOUND CARE for 7 Days, #1 to Left great toe Prescribed by: ASTER RASMUSSEN APRN on 01/23/181407 Last Action: Continued on 10/17/18900 by MONA ZARAGOZA Prednisone (Prednisone ) 10 Mg Tablet, 10 MG PO UD for PREDNISONE TAPER, #39 Ref 0 Take 3 tablets by mouth twice a day for 3 days, then take 2 tablets by mouth twice a day for 3 days, then take 1 tablet by mouth twice a day for 3 days, then take 1 tablet by mouth daily x 3 days, then stop. Prescribed by: KATI BECKFORD on 04/21/16 1130 Last Action: HELD on 10/17/18900 by MONA ZARAGOZA Scheduled PRN Hydrocortisone Valerate (Hydrocortisone Valerate) 15 Gm Cream..g., 1 RADHA TP BID PRN for ITCHING for 5 Days, #15 Apply thin layer to itchy area twice daily for itching Prescribed by: ASTER RASMUSSEN APRN on 01/23/18 1408 Last Action: Converted on 10/17/18900 by MONA PIMENTEL MD Oct 17, 2018 11:29
--- NOTE | 2018-10-17 11:40 | PDOC2 ---
CONSULT Date of Consult Date of Consult DATE: 10/17/18 TIME: 11:26 Reason for Consult Reason for Consult: Pancytopenia Referring Physician Referring Physician: neville Source Source: Chart review, Patient History of Present Illness Reason for Visit: 27 yo female with a history of SLE and pancytopenia presented to the hospital with a fever. She was diagnosed with UTI and given levaquin but had persistent fevers and returned to the ED. She was started on ceftriaxone and currently states she is feeling better. Also, she states that she has been drinking lots of beet juice and noticed red stools. She had a cbc that showed wbc 3.3; hgb 8.4 and platelet count of 27. The patient states that she had a bone marrow biopsy a couple of years ago and previously has seen hematology but is not sure who she saw. She is not on any immunosuppressive medications for her SLE currently and only follows with nephrology. She states that her counts are low , but does not no any further detail. Past Medical History CENTRAL NERVOUS SYSTEM: Seizure Heme/Onc: Anemia NOS Rheumatologic: Other (SLE) Family History Family History: Hypertension Social History ALCOHOL: none Lives: with Family Current Problem List Problem List Problems Medical Problems: (1) Pancytopenia Status: Acute Current Medications Current Medications Current Medications Sodium Chloride 500 ml @ 500 mls/hr 1X ONCE IV Last administered on at 06:11; Start 10/17/18 at 05:30; Stop 10/17/18 at 06:29; Status DC Pantoprazole Sodium (PROTONIX VIAL for IV PUSH) 40 mg 1X ONCE IVP Last administered on 10/17/18at 06:11; Start 10/17/18 at 05:30; Stop 10/17/18 at 05:31 ; Status DC Ceftriaxone Sodium (Rocephin) 1 gm 1X ONCE IVP Last administered on 10/17/18at 06:11; Start 10/17/18 at 05:30; Stop 10/17/18 at 05:31; Status DC Ondansetron HCl (Zofran) 4 mg PRN Q8HRS PRN IV NAUSEA/VOMITING 1ST CHOICE; Start 10/17/18 at 06:15; Stop 10/17/18 at 09:01; Status DC Sodium Chloride 1,000 ml @ 150 mls/hr Q6H40M IV Last administered on at 06:30; Start 10/17/18 at 06:30; Stop 10/18/18 at 06:29 Acetaminophen (Tylenol) 650 mg PRN Q4HRS PRN PO FEVER; Start 10/17/18 at 06:15 ; Stop 10/18/18 at 06:14 Ondansetron HCl (Zofran) 4 mg PRN Q6HRS PRN IV NAUSEA/VOMITING 1ST CHOICE; Start 10/17/18 at 09:15 Mupirocin (Bactroban) 1 nano TID TP ; Start 10/17/18 at 14:00 Hydrocortisone (Cortaid) 1 nano PRN BID PRN TP ITCHING; Start 10/17/18 at 09:30 Active Scripts Active Levaquin (Levofloxacin) 500 Mg Tablet 1 Tab PO DAILY Hydrocortisone Valerate 15 Gm Cream..g. 1 Nano TP BID PRN 5 Days Apply thin layer to itchy area twice daily for itching Mupirocin Ointment (Mupirocin) 22 Gm Oint...g. 1 Nano TP TID 7 Days to Left great toe Keflex (Cephalexin) 500 Mg Capsule 1,000 Mg PO BID 10 Days Doxycycline Hyclate 100 Mg Capsule 1 Cap PO BID Prednisone (Prednisone) 10 Mg Tablet 10 Mg PO UD Take 3 tablets by mouth twice a day for 3 days, then take 2 tablets by mouth twice a day for 3 days, then take 1 tablet by mouth twice a day for 3 days, then take 1 tablet by mouth daily x 3 days, then stop. Allergies Allergies: Coded Allergies: hydroxychloroquine (Verified Allergy, Intermediate, "crazy dreams" stomach pain, dizziness, 10/16/18) ROS General: YES: Fatigue, Other (fever) PSYCHOLOGICAL ROS: No: Anxiety, Behavioral Disorder, Concentration difficultie , Decreased libido, Depression, Disorientation, Hallucinations, Hostility, Irritablity, Memory difficulties, Mood Swings, Obsessive thoughts, Physical abuse, Sexual abuse, Sleep disturbances, Suicidal ideation, Other Eyes: No Blurry vision, No Decreased vision, No Double vision, No Dry eyes, No Excessive tearing, No Eye Pain, No Itchy Eyes, No Loss of vision, No Photophobia , No Scotomata, No Uses contacts, No Uses glasses, No Other HEENT: No: Heacaches, Visual Changes, Hearing change, Nasal congestion, Nasal discharge, Oral lesions, Sinus pain, Sore Throat, Epistaxis, Sneezing, Snoring, Tinnitus, Vertigo, Vocal changes, Other ALLERGY AND IMMUNOLOGY: No: Hives, Insect Bite Sensitivity, Itchy/Watery Eyes, Nasal Congestion, Post Nasal Drip, Seasonal Allergies, Other Hematological and Lymphatic: No: Bleeding Problems, Blood Clots, Blood Transfusions, Brusing, Night Sweats, Pallor, Swollen Lymph Nodes, Other ENDOCRINE: No: Breast Changes, Galactorrhea, Hair Pattern Changes, Hot Flashes , Malaise/lethargy, Mood Swings, Palpitations, Polydipsia/polyuria, Skin Changes , Temperature Intolerance, Unexpected Weight Changes, Other Breast: No New/Changing Breast Lumps, No Nipple changes, No Nipple discharge, No Other Respiratory: No: Cough, Hemoptysis, Orthopnea, Pleuritic Pain, Shortness of breath, SOB with excertion, Sputum Changes, Stridor, Tachypnea, Wheezing, Other Cardiovascular: No Chest Pain, No Palpitations, No Orthopnea, No Paroxysmal Noc. Dyspnea, No Edema, No Lt Headedness, No Other Gastrointestinal: No Nausea, No Vomiting, No Abdominal Pain, No Diarrhea, No Constipation, No Melena, No Hematochezia, No Other Genitourinary: No Dysuria, No Frequency, No Incontinence, No Hematuria, No Retention, No Discharge, No Urgency, No Pain, No Flank Pain, No Other, No , No , No , No , No , No , No Musculoskeletal: No Gait Disturbance, No Joint Pain, No Joint Stiffness, No Joint Swelling, No Muscle Pain, No Muscular Weakness, No Pain In:, No Swelling In:, No Other Neurological: No Behavorial Changes, No Bowel/Bladder ControlChng, No Confusion , No Dizziness, No Gait Disturbance, No Headaches, No Impaired Coord/balance, No Memory Loss, No Numbness/Tingling, No Seizures, No Speech Problems, No Tremors, No Visual Changes, No Weakness, No Other Skin: No Dry Skin, No Eczema, No Hair Changes, No Lumps, No Mole Changes, No Mottling, No Nail Changes, No Pruritus, No Rash, No Skin Lesion Changes, No Other, No Acne Physical Exam General: Alert, Oriented X3 HEENT: PERRLA Lungs: Clear to auscultation Heart: Regular rate, Normal S1, Normal S2 Abdomen: Normal bowel sounds, Soft Extremities: No clubbing, No cyanosis Skin: No rashes Neuro: Normal gait Psych/Mental Status: Mental status NL Vitals VITALS Vital Signs Date Time Temp Pulse Resp B/P (MAP) Pulse Ox O2 Delivery O2 Flow Rate FiO2 10/17/18 07:57 99.0 97 18 94/63 (73) 99 Room Air 99.0 Labs Labs Laboratory Tests Test 10/17/18 04:45 10/17/18 04:50 10/17/18 05:23 10/17/18 05:25 Lactic Acid Level 0.8 mmol/L (0.4-2.0) White Blood Count 3.3 x10^3/uL (4.0-11.0) Red Blood Count 3.56 x10^6/uL (3.50-5.40) Hemoglobin 8.4 g/dL (12.0-15.5) Hematocrit 26.7 % (36.0-47.0) Mean Corpuscular Volume 75 fL (79-100) Mean Corpuscular Hemoglobin 24 pg (25-35) Mean Corpuscular Hemoglobin Concent 31 g/dL (31-37) Red Cell Distribution Width 15.4 % (11.5-14.5) Platelet Count 27 x10^3/uL (140-400) Neutrophils (%) (Auto) 49 % (31-73) Lymphocytes (%) (Auto) 48 % (24-48) Monocytes (%) (Auto) 3 % (0-9) Eosinophils (%) (Auto) 0 % (0-3) Basophils (%) (Auto) 0 % (0-3) Neutrophils # (Auto) 1.6 x10^3uL (1.8-7.7) Lymphocytes # (Auto) 1.6 x10^3/uL (1.0-4.8) Monocytes # (Auto) 0.1 x10^3/uL (0.0-1.1) Eosinophils # (Auto) 0.0 x10^3/uL (0.0-0.7) Basophils # (Auto) 0.0 x10^3/uL (0.0-0.2) Segmented Neutrophils % 40 % (35-66) Band Neutrophils % 17 % (0-9) Lymphocytes % 41 % (24-48) Monocytes % 2 % (0-10) Platelet Estimate Decreased (ADEQUATE) Hypochromasia Slight Anisocytosis Slight Microcytosis Slight Tear Drop Cells Occ Ovalocytes Few Prothrombin Time 14.0 SEC (11.7-14.0) Prothromb Time International Ratio 1.1 (0.8-1.1) Stool Occult Blood Negative (NEG) Sodium Level 132 mmol/L (136-145) Potassium Level 4.2 mmol/L (3.5-5.1) Chloride Level 96 mmol/L (98-107) Carbon Dioxide Level 21 mmol/L (21-32) Anion Gap 15 (6-14) Blood Urea Nitrogen 12 mg/dL (7-20) Creatinine 1.9 mg/dL (0.6-1.0) Estimated GFR (Cockcroft-Gault) 38.7 BUN/Creatinine Ratio 6 (6-20) Glucose Level 109 mg/dL (70-99) Calcium Level 8.3 mg/dL (8.5-10.1) Total Bilirubin 0.4 mg/dL (0.2-1.0) Aspartate Amino Transf (AST/SGOT) 92 U/L (15-37) Alanine Aminotransferase (ALT/SGPT) 31 U/L (14-59) Alkaline Phosphatase 77 U/L (46-116) Total Protein 7.9 g/dL (6.4-8.2) Albumin 2.9 g/dL (3.4-5.0) Albumin/Globulin Ratio 0.6 (1.0-1.7) Urine Collection Type Unknown Urine Color Yellow Urine Clarity Clear Urine pH 6.0 Urine Specific [place] <=1.005 Urine Protein 100 mg/dL (NEG-TRACE) Urine Glucose (UA) Negative mg/dL (NEG) Urine Ketones (Stick) Trace mg/dL (NEG) Urine Blood Large (NEG) Urine Nitrite Negative (NEG) Urine Bilirubin Negative (NEG) Urine Urobilinogen Dipstick 0.2 mg/dL (0.2 mg/dL) Urine Leukocyte Esterase Small (NEG) Urine RBC 3-5 /HPF (0-2) Urine WBC 11-20 /HPF (0-4) Urine Squamous Epithelial Cells Few /LPF Urine Bacteria 0 /HPF (0-FEW) Bedside Urine HCG, Qualitative Hcg negative (Negative) Laboratory Tests Test 10/17/18 04:45 10/17/18 04:50 10/17/18 05:23 10/17/18 05:25 Lactic Acid Level 0.8 mmol/L (0.4-2.0) White Blood Count 3.3 x10^3/uL (4.0-11.0) Red Blood Count 3.56 x10^6/uL (3.50-5.40) Hemoglobin 8.4 g/dL (12.0-15.5) Hematocrit 26.7 % (36.0-47.0) Mean Corpuscular Volume 75 fL (79-100) Mean Corpuscular Hemoglobin 24 pg (25-35) Mean Corpuscular Hemoglobin Concent 31 g/dL (31-37) Red Cell Distribution Width 15.4 % (11.5-14.5) Platelet Count 27 x10^3/uL (140-400) Neutrophils (%) (Auto) 49 % (31-73) Lymphocytes (%) (Auto) 48 % (24-48) Monocytes (%) (Auto) 3 % (0-9) Eosinophils (%) (Auto) 0 % (0-3) Basophils (%) (Auto) 0 % (0-3) Neutrophils # (Auto) 1.6 x10^3uL (1.8-7.7) Lymphocytes # (Auto) 1.6 x10^3/uL (1.0-4.8) Monocytes # (Auto) 0.1 x10^3/uL (0.0-1.1) Eosinophils # (Auto) 0.0 x10^3/uL (0.0-0.7) Basophils # (Auto) 0.0 x10^3/uL (0.0-0.2) Segmented Neutrophils % 40 % (35-66) Band Neutrophils % 17 % (0-9) Lymphocytes % 41 % (24-48) Monocytes % 2 % (0-10) Platelet Estimate Decreased (ADEQUATE) Hypochromasia Slight Anisocytosis Slight Microcytosis Slight Tear Drop Cells Occ Ovalocytes Few Prothrombin Time 14.0 SEC (11.7-14.0) Prothromb Time International Ratio 1.1 (0.8-1.1) Stool Occult Blood Negative (NEG) Sodium Level 132 mmol/L (136-145) Potassium Level 4.2 mmol/L (3.5-5.1) Chloride Level 96 mmol/L (98-107) Carbon Dioxide Level 21 mmol/L (21-32) Anion Gap 15 (6-14) Blood Urea Nitrogen 12 mg/dL (7-20) Creatinine 1.9 mg/dL (0.6-1.0) Estimated GFR (Cockcroft-Gault) 38.7 BUN/Creatinine Ratio 6 (6-20) Glucose Level 109 mg/dL (70-99) Calcium Level 8.3 mg/dL (8.5-10.1) Total Bilirubin 0.4 mg/dL (0.2-1.0) Aspartate Amino Transf (AST/SGOT) 92 U/L (15-37) Alanine Aminotransferase (ALT/SGPT) 31 U/L (14-59) Alkaline Phosphatase 77 U/L (46-116) Total Protein 7.9 g/dL (6.4-8.2) Albumin 2.9 g/dL (3.4-5.0) Albumin/Globulin Ratio 0.6 (1.0-1.7) Urine Collection Type Unknown Urine Color Yellow Urine Clarity Clear Urine pH 6.0 Urine Specific [place] <=1.005 Urine Protein 100 mg/dL (NEG-TRACE) Urine Glucose (UA) Negative mg/dL (NEG) Urine Ketones (Stick) Trace mg/dL (NEG) Urine Blood Large (NEG) Urine Nitrite Negative (NEG) Urine Bilirubin Negative (NEG) Urine Urobilinogen Dipstick 0.2 mg/dL (0.2 mg/dL) Urine Leukocyte Esterase Small (NEG) Urine RBC 3-5 /HPF (0-2) Urine WBC 11-20 /HPF (0-4) Urine Squamous Epithelial Cells Few /LPF Urine Bacteria 0 /HPF (0-FEW) Bedside Urine HCG, Qualitative Hcg negative (Negative) Images Images CXR negative Assessment/Plan Assessment/Plan 1. Pancytopenia. She has a history of pancytopenia, but she does not know how low her counts are. She follows with [facility], but I cannot access the [facility] chart at this medical center, so I do not know how low her platelets normally run. She denies any bleeding or bruising. She also states that she had a bm biopsy a couple years ago at [facility] and as per her report there was nothing significantly wrong with the bone marrow. I do not think that we need to reinvent the wheel of working up this history especially if this has been known for several years. Most likely her SLE is contributing to this greatly. I would like to see what her counts normally run. If she is discharged, I think getting labs next week would be appropriate with close follow-up with her physicians. With her platelet count of 27 she should return to the hospital if she develops any bleeding. Another contributing factor could be her uti 2. UTI on abx 3. Renal insufficiency. Follow up with nephrology COURTNEY JOSEPH MD Oct 17, 2018 11:40
--- NOTE | 2018-10-17 12:44 | PDOC ---
PROGRESS NOTES Subjective Subjective pancytopenia Objective Objective Vital Signs Date Time Temp Pulse Resp B/P (MAP) Pulse Ox O2 Delivery O2 Flow Rate FiO2 10/17/18 11:15 99.2 100 18 101/64 (76) 99 Room Air 99.2 Assessment Assessment Problems Medical Problems: (1) Pancytopenia Status: Acute Plan Plan of Care Dr. Ch called me, he was unable to access the computer from home. 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 Labs Laboratory Tests Test 10/17/18 04:45 10/17/18 04:50 10/17/18 05:23 10/17/18 05:25 Lactic Acid Level 0.8 mmol/L (0.4-2.0) White Blood Count 3.3 x10^3/uL (4.0-11.0) Red Blood Count 3.56 x10^6/uL (3.50-5.40) Hemoglobin 8.4 g/dL (12.0-15.5) Hematocrit 26.7 % (36.0-47.0) Mean Corpuscular Volume 75 fL (79-100) Mean Corpuscular Hemoglobin 24 pg (25-35) Mean Corpuscular Hemoglobin Concent 31 g/dL (31-37) Red Cell Distribution Width 15.4 % (11.5-14.5) Platelet Count 27 x10^3/uL (140-400) Neutrophils (%) (Auto) 49 % (31-73) Lymphocytes (%) (Auto) 48 % (24-48) Monocytes (%) (Auto) 3 % (0-9) Eosinophils (%) (Auto) 0 % (0-3) Basophils (%) (Auto) 0 % (0-3) Neutrophils # (Auto) 1.6 x10^3uL (1.8-7.7) Lymphocytes # (Auto) 1.6 x10^3/uL (1.0-4.8) Monocytes # (Auto) 0.1 x10^3/uL (0.0-1.1) Eosinophils # (Auto) 0.0 x10^3/uL (0.0-0.7) Basophils # (Auto) 0.0 x10^3/uL (0.0-0.2) Segmented Neutrophils % 40 % (35-66) Band Neutrophils % 17 % (0-9) Lymphocytes % 41 % (24-48) Monocytes % 2 % (0-10) Platelet Estimate Decreased (ADEQUATE) Hypochromasia Slight Anisocytosis Slight Microcytosis Slight Tear Drop Cells Occ Ovalocytes Few Prothrombin Time 14.0 SEC (11.7-14.0) Prothromb Time International Ratio 1.1 (0.8-1.1) Stool Occult Blood Negative (NEG) Sodium Level 132 mmol/L (136-145) Potassium Level 4.2 mmol/L (3.5-5.1) Chloride Level 96 mmol/L (98-107) Carbon Dioxide Level 21 mmol/L (21-32) Anion Gap 15 (6-14) Blood Urea Nitrogen 12 mg/dL (7-20) Creatinine 1.9 mg/dL (0.6-1.0) Estimated GFR (Cockcroft-Gault) 38.7 BUN/Creatinine Ratio 6 (6-20) Glucose Level 109 mg/dL (70-99) Calcium Level 8.3 mg/dL (8.5-10.1) Total Bilirubin 0.4 mg/dL (0.2-1.0) Aspartate Amino Transf (AST/SGOT) 92 U/L (15-37) Alanine Aminotransferase (ALT/SGPT) 31 U/L (14-59) Alkaline Phosphatase 77 U/L (46-116) Total Protein 7.9 g/dL (6.4-8.2) Albumin 2.9 g/dL (3.4-5.0) Albumin/Globulin Ratio 0.6 (1.0-1.7) Urine Collection Type Unknown Urine Color Yellow Urine Clarity Clear Urine pH 6.0 Urine Specific [place] <=1.005 Urine Protein 100 mg/dL (NEG-TRACE) Urine Glucose (UA) Negative mg/dL (NEG) Urine Ketones (Stick) Trace mg/dL (NEG) Urine Blood Large (NEG) Urine Nitrite Negative (NEG) Urine Bilirubin Negative (NEG) Urine Urobilinogen Dipstick 0.2 mg/dL (0.2 mg/dL) Urine Leukocyte Esterase Small (NEG) Urine RBC 3-5 /HPF (0-2) Urine WBC 11-20 /HPF (0-4) Urine Squamous Epithelial Cells Few /LPF Urine Bacteria 0 /HPF (0-FEW) Bedside Urine HCG, Qualitative Hcg negative (Negative) Test 10/17/18 09:53 Erythrocyte Sedimentation Rate 95 (0-25) Laboratory Tests Test 10/17/18 04:45 10/17/18 04:50 10/17/18 05:23 10/17/18 05:25 Lactic Acid Level 0.8 mmol/L (0.4-2.0) White Blood Count 3.3 x10^3/uL (4.0-11.0) Red Blood Count 3.56 x10^6/uL (3.50-5.40) Hemoglobin 8.4 g/dL (12.0-15.5) Hematocrit 26.7 % (36.0-47.0) Mean Corpuscular Volume 75 fL (79-100) Mean Corpuscular Hemoglobin 24 pg (25-35) Mean Corpuscular Hemoglobin Concent 31 g/dL (31-37) Red Cell Distribution Width 15.4 % (11.5-14.5) Platelet Count 27 x10^3/uL (140-400) Neutrophils (%) (Auto) 49 % (31-73) Lymphocytes (%) (Auto) 48 % (24-48) Monocytes (%) (Auto) 3 % (0-9) Eosinophils (%) (Auto) 0 % (0-3) Basophils (%) (Auto) 0 % (0-3) Neutrophils # (Auto) 1.6 x10^3uL (1.8-7.7) Lymphocytes # (Auto) 1.6 x10^3/uL (1.0-4.8) Monocytes # (Auto) 0.1 x10^3/uL (0.0-1.1) Eosinophils # (Auto) 0.0 x10^3/uL (0.0-0.7) Basophils # (Auto) 0.0 x10^3/uL (0.0-0.2) Segmented Neutrophils % 40 % (35-66) Band Neutrophils % 17 % (0-9) Lymphocytes % 41 % (24-48) Monocytes % 2 % (0-10) Platelet Estimate Decreased (ADEQUATE) Hypochromasia Slight Anisocytosis Slight Microcytosis Slight Tear Drop Cells Occ Ovalocytes Few Prothrombin Time 14.0 SEC (11.7-14.0) Prothromb Time International Ratio 1.1 (0.8-1.1) Stool Occult Blood Negative (NEG) Sodium Level 132 mmol/L (136-145) Potassium Level 4.2 mmol/L (3.5-5.1) Chloride Level 96 mmol/L (98-107) Carbon Dioxide Level 21 mmol/L (21-32) Anion Gap 15 (6-14) Blood Urea Nitrogen 12 mg/dL (7-20) Creatinine 1.9 mg/dL (0.6-1.0) Estimated GFR (Cockcroft-Gault) 38.7 BUN/Creatinine Ratio 6 (6-20) Glucose Level 109 mg/dL (70-99) Calcium Level 8.3 mg/dL (8.5-10.1) Total Bilirubin 0.4 mg/dL (0.2-1.0) Aspartate Amino Transf (AST/SGOT) 92 U/L (15-37) Alanine Aminotransferase (ALT/SGPT) 31 U/L (14-59) Alkaline Phosphatase 77 U/L (46-116) Total Protein 7.9 g/dL (6.4-8.2) Albumin 2.9 g/dL (3.4-5.0) Albumin/Globulin Ratio 0.6 (1.0-1.7) Urine Collection Type Unknown Urine Color Yellow Urine Clarity Clear Urine pH 6.0 Urine Specific [place] <=1.005 Urine Protein 100 mg/dL (NEG-TRACE) Urine Glucose (UA) Negative mg/dL (NEG) Urine Ketones (Stick) Trace mg/dL (NEG) Urine Blood Large (NEG) Urine Nitrite Negative (NEG) Urine Bilirubin Negative (NEG) Urine Urobilinogen Dipstick 0.2 mg/dL (0.2 mg/dL) Urine Leukocyte Esterase Small (NEG) Urine RBC 3-5 /HPF (0-2) Urine WBC 11-20 /HPF (0-4) Urine Squamous Epithelial Cells Few /LPF Urine Bacteria 0 /HPF (0-FEW) Bedside Urine HCG, Qualitative Hcg negative (Negative) Test 10/17/18 09:53 Erythrocyte Sedimentation Rate 95 (0-25) Medications Current Medications Sodium Chloride 500 ml @ 500 mls/hr 1X ONCE IV Last administered on at 06:11; Start 10/17/18 at 05:30; Stop 10/17/18 at 06:29; Status DC Pantoprazole Sodium (PROTONIX VIAL for IV PUSH) 40 mg 1X ONCE IVP Last administered on 10/17/18at 06:11; Start 10/17/18 at 05:30; Stop 10/17/18 at 05:31 ; Status DC Ceftriaxone Sodium (Rocephin) 1 gm 1X ONCE IVP Last administered on 10/17/18at 06:11; Start 10/17/18 at 05:30; Stop 10/17/18 at 05:31; Status DC Ondansetron HCl (Zofran) 4 mg PRN Q8HRS PRN IV NAUSEA/VOMITING 1ST CHOICE; Start 10/17/18 at 06:15; Stop 10/17/18 at 09:01; Status DC Sodium Chloride 1,000 ml @ 150 mls/hr Q6H40M IV Last administered on at 06:30; Start 10/17/18 at 06:30; Stop 10/18/18 at 06:29 Acetaminophen (Tylenol) 650 mg PRN Q4HRS PRN PO FEVER; Start 10/17/18 at 06:15 ; Stop 10/18/18 at 06:14 Ondansetron HCl (Zofran) 4 mg PRN Q6HRS PRN IV NAUSEA/VOMITING 1ST CHOICE; Start 10/17/18 at 09:15 Mupirocin (Bactroban) 1 kam[place] TID TP ; Start 10/17/18 at 14:00 Hydrocortisone (Cortaid) 1 kamlesh PRN BID PRN TP ITCHING; Start 10/17/18 at 09:30 Active Scripts Active No Active Prescriptions or Reported Medications Vitals/I & O Vital Sign - Last 24 Hours 10/17/18 10/17/18 10/17/18 10/17/18 04:40 05:09 05:39 06:09 Temp 99.6 99.6 Pulse 118 117 111 113 Resp 16 16 B/P (MAP) 114/66 (82) 97/59 (72) 93/67 (76) 105/70 (82) Pulse Ox 100 98 98 99 O2 Delivery Room Air Room Air Room Air Room Air 10/17/18 10/17/18 10/17/18 06:39 07:57 11:15 Temp 99.0 99.2 99.0 99.2 Pulse 103 97 100 Resp 16 18 18 B/P (MAP) 99/73 (82) 94/63 (73) 101/64 (76) Pulse Ox 98 99 99 O2 Delivery Room Air Room Air Room Air KATI BECKFORD MD Oct 17, 2018 12:44
[2018-10-17] MEDS ORDERED: DEXAMETHASONE 4 MG TABLET PO SCH (12:45)
--- NOTE | 2018-10-17 12:46 | NUR ---
Discharge Note: PATRICIA WISEMAN Discharge instructions and discharge home medications reviewed with Patient and a copy given. All questions have been answered and understanding verbalized. The following instructions and handouts were given: Weakness Discontinued lines and drains: Peripheral IV intact. Patient discharged to Home or Self Care with Family Member via Wheelchair
[2018-10-17] MEDS ORDERED: MUPIROCIN 2 % NASAL OINTMENT 22GM TUBE. TP SCH (14:00)
--- NOTE | 2018-10-17 17:01 | EKG ---
[facility] [address] [place] [address] Test Date: 2018-10-17 Test Time: 05:17:33 Pat Name: PATRICIA WISEMAN Department: Room: [facility] Gender: Female Mine [employer]: : 1990 Requested By: BEENA GONZALEZ Order Number: [id number] Reading MD: Raul Sheets MD Measurements Intervals [place] Rate: 114 P: 49 UT: 138 QRS: 22 QRSD: 74 T: 11 QT: 310 QTc: 430 Interpretive Statements SINUS TACHYCARDIA Electronically Signed On 10-22-2018 14:04:17 CDT by Raul Sheets MD
[2018-10-18 08:13] LABS: C3 COMPLEMENT 102 mg/dL (82-167); C4 COMPLEMENT 26 mg/dL (14-44)
== END 2018-10-17 12:47 | disposition home or self-care (01) | DRG 696 ==
LOC: ER 04:31 → EEVIPCON 06:15 → 5 NORTH 06:15
PROVIDERS: ADMIT Family Medicine; ATTEND Family Medicine
DX: R31.29 Other microscopic hematuria (principal); D61.818 Other pancytopenia; D69.3 Immune thrombocytopenic purpura; M32.9 Systemic lupus erythematosus, unspecified; N18.9 Chronic kidney disease, unspecified; Z82.49 Family history of ischemic heart disease and other diseases of the circulatory system; Z88.8 Allergy status to other drugs, medicaments and biological substances; Z79.899 Other long term (current) drug therapy; T78.1XXA Other adverse food reactions, not elsewhere classified, initial encounter
CPT/HCPCS: 36415; 80053; 81001; 81025; 82274; 83605; 85007; 85025; 85610; 85651; 86160; 87040; 87086; 93005; 96361; 96374; 96375; C9113; J0696; J7030; J7040; 99285-25